=== PATIENT | male | born 1935 | race Caucasian/White ===

== ENCOUNTER 2017-12-15 16:00 | Inpatient (IN) | payer MEDICARE, BC ==
--- NOTE | 2017-12-15 16:07 | ED Physician Chart ---
ED Chief Complaint/HPI - Patient Information Date Seen:: 12/15/17 Time Seen:: 16:00 Chief Complaint:: Agitation History of Present Illness:: onset x 3 days of agitation and aggressive behavior; no report of SIs, trauma, H /As, neck pain, C/P, SOB, Abd.m Pain, A/N/V/D/C, fever, chills, or urinary s/s Historian:: Patient, EMS Review:: Nurse's Note Reviewed, Old Chart Reviewed, EMS run form Reviewed ED Review of Systems - Review of Systems General/Constitutional: No fever, No chills, No weight loss, No weakness, No diaphoresis, No edema, No loss of appetite Skin: No skin lesions, No rash, No bruising Head: No headache, No light-headedness Eyes: No loss of vision, No pain, No diplopia ENT: No earache, No nasal drainage, No sore throat, No tinnitus Neck: No neck pain, No swelling, No thyromegaly, No stiffness, No mass noted Cardio Vascular: No chest pain, No palpitations, No PND, No orthopnea, No edema Pulmonary: No SOB, No cough, No sputum, No wheezing GI: No nausea, No vomiting, No diarrhea, No pain, No melena, No hematochezia, No constipation, No hematemesis G/U: No dysuria, No frequency, No hematuria, No nacturia Musculoskeletal: No bone or joint pain, No back pain, No muscle pain Endocrine: No polyuria, No polydipsia Psychiatric: Prior psych history, Depression, Anxiety, No suicidal ideation, No homicidal ideation, Auditory hallucination, No visual hallucination Hematopoietic: No bruising, No lymphadenopathy Allergic/Immuno: No urticaria, No angioedema Neurological: No syncope, No focal symptoms, No weakness, No paresthesia, No headache, No seizure, No dizziness, Confusion, No vertigo ED Past Medical History - Past Medical History Obtainable: Yes Past Medical History: HTN, CAD, CVA/TIA, Dyslipidemia, PUD/GERD, Arthritis, Dementia Family History: Diabetes Melitus, HTN Social History: Non Smoker, No Alcohol, No Drug Use, Single, Care Facility Surgical History: None Psychiatricy History: Depression, Schizophrenia, Bipolar, Dementia Medication: Reviewed Family Medical History - Family Member Mother History Unknown: Yes ED Physical Exam - Physical Examination General/Constitutional: Awake, Well-developed, well-nourished, Alert, No distress, GCS 15, Non-toxic appearing, Ambulatory Head: Atraumatic Eyes: Lids, conjuctiva normal, PERRL, EOMI Skin: Nl inspection, No rash, No skin lesions, No ecchymosis, Well hydrated, No lymphadenopathy ENMT: External ears, nose nl, TM canals nl, Nasal exam nl, Lips, teeth, gums nl , Oropharynx nl, Tonsils nl Neck: Nontender, Full ROM w/o pain, No JVD, No nuchal rigidity, No bruit, No mass, No stridor Respiratory: Nl effort/Exclusion, Clear to Auscultation, No Wheeze/Rhonchi/Rales Cardio Vascular: RRR, No murmur, gallop, rubs, NL S1 S2, Carotid/Femoral/Distal pulses equal bilaterally GI: No tenderness/rebounding/guarding, No organomegaly, No hernia, Normal BS's, Nondistended, No mass/bruits, No McBurney tenderness : No CVA tenderness Extremities: No tenderness or effusion, Full ROM, normal strength in all extremities, No edema, Normal digits & nails Neuro/Psych: Alert/oriented, DTR's symmetric, Normal sensory exam, Normal motor strength, Judgement/insight normal, Mood normal, Normal gait, No focal deficits Other Neuro/Psych comments:: Disoriented and Confused; + Psychomotor Agitation; no SIs; Mood/Affect: Labile Misc: Normal back, No paraspinal tenderness ED Labs/Radiology/EKG Results - Lab Results Comments:: WBC: 15.0 - EKG Interpretations EKG Time:: 16:03 Rate & Rhythm: 65; NSR Comments:: non-specific st-t changes ED Septic Shock - . Is Septic Shock (SBP<90, OR Lactate>4 mmol\L) present?: No ED Reassessment (Disposition) - Reassessment Reassessment Condition:: Improved - Diagnosis Diagnosis:: Dx: Leukocytosis; Psychosis; Agitation; Bipolar Disorder; Dementia; Manic- Depression - Aftercare/Follow up Instructions Aftercare/Follow-Up Instructions:: Counseled pt regarding lab results/diagnosis & need follow up, Counseled pt & family regarding lab results/diagnosis & need follow up - Patient Disposition Discharge/Transfer:: Acute Care w/in this hosp Accepting Physician:: Dr. Quintero Time Called:: 0238 Time Responded:: 17:30 Admitted to:: [facility] Spoke to:: Dr. Quintero Admitting Medical Physician:: Dr. Quintero Admitting Psych Physician:: Dr. Ferrara Condition at Disposition:: Stable, Improved ED Discharge Plan - Patient Disposition Admit/Discharge/Transfer: Other Care w/in this hosp Condition at Disposition: Stable
[2017-12-15 16:45] LABS: ACETAMINOPHEN < 10.0 ug/mL (10.0-30.0); ALBUMIN 3.5 gm/dL (4.2-5.5); ALKALINE PHOSPHATASE 44 U/L (34-104); ANION GAP 11.8 (7.0-16.0); BILIRUBIN,TOTAL 0.5 mg/dL (0.3-1.0); BUN - UREA NITROGEN 15 mg/dL (7-25); CALCIUM SERUM 9.5 mg/dL (8.6-10.3); CARBON DIOXIDE 25.8 mEq/L (21.0-31.0); CHLORIDE 105 mEq/L (98-107); CHOLESTEROL 196 mg/dL (<200); CREATININE - SERUM 1.2 mg/dL (0.7-1.3); GLUCOSE 100 mg/dL (70-105); HDL -HIGH DENSITY LIPOPROTEIN 45 mg/dL (23-92); POTASSIUM SERUM 3.6 mEq/L (3.5-5.1); SGOT 10 U/L (13-39); SGPT/ALT 5 U/L (7-52); SODIUM SERUM 139 mEq/L (136-145); TOTAL PROTEIN,SERUM 6.9 gm/dL (6.0-8.3); TRIGLYCERIDES 201 mg/dL (<150)
[2017-12-15 16:49] LABS: % BASOPHILS 0.3 % (0.0-2.0); % EOSINOPHILS 2.8 % (0.0-5.0); % LYMPHOCYTES 12.6 % (20.0-50.0); % MONOCYTES 6.9 % (2.0-10.0); % NEUTROPHILS 77.4 % (40.0-80.0); EOSINOPHILE ABSOLUTE 0.4 Th/cmm (0.1-0.4); HEMATOCRIT 37.1 % (41.0-60); HEMOGLOBIN 12.8 gm/dL (12-16); LYMPHOCYTE ABSOLUTE 1.9 Th/cmm (1.5-3.0); MEAN CELL VOLUME 83.7 fl (80-99); MEAN CORPUSCULAR HEMOGLOBIN 28.8 pg (27.0-31.0); MEAN CORPUSCULAR HGB CONC 34.5 pg (28.0-36.0); MEAN PLATELET VOLUME 8.3 fl; MONOCYTE ABSOLUTE 1.1 Th/cmm (0.3-1.0); NEUTROPHILE ABSOLUTE 11.9 Th/cmm (1.8-8.0); PLATELET COUNT 335 Th/cmm (150-400); RED BLOOD COUNT 4.44 Mil/cmm (3.80-5.80); RED CELL DISTRIBUTION WIDTH 14.2 % (11.5-20.0); SALICYLATES (ASPIRIN) < 25.0 mg/L (30.0-100.0)
[2017-12-15 16:52] LABS: WHITE BLOOD COUNT 15.3 Th/cmm (4.8-10.8)
[2017-12-15 17:18] LABS: A1C % 5.3 % (4.0-6.0)
[2017-12-15 18:41] VITALS: BP 147/59
[2017-12-15 20:16] LABS: URINE MICROSCOPIC INDICATED? YES; URINE SOURCE CLEAN C
[2017-12-15 20:18] LABS: URINE BILIRUBIN NEGATIVE (NEGATIVE); URINE BLOOD NEGATIVE (NEGATIVE); URINE GLUCOSE (UA) NEGATIVE (NEGATIVE); URINE KETONE NEGATIVE (NEGATIVE); URINE LEUKOCYTE ESTERASE NEGATIVE (NEGATIVE); URINE NITRATE NEGATIVE (NEGATIVE); URINE PROTEIN TRACE mg/dL (NEGATIVE); URINE UROBILINOGEN 0.2 E.U./dL (0.2 - 1.0)
[2017-12-15 20:21] LABS: URINE CLARITY CLEAR (CLEAR); URINE COLOR YELLOW; URINE RBC NONE SEEN /hpf (0-5); URINE WBC NONE SEEN /hpf (0-5)
[2017-12-15 20:22] LABS: URINE BACTERIA NONE SEEN /hpf (NONE SEEN); URINE EPITHELIAL CELLS NONE SEEN /lpf (FEW)
[2017-12-15 21:00] LABS: AMPHETAMINE URINE NEGATIVE (NEGATIVE); BARBITURATES URINE NEGATIVE (NEGATIVE); BENZODIAZEPINES QUAL URINE POSITIVE (NEGATIVE); CANNABINOID THC NEGATIVE (NEGATIVE); COCAINE METABOLITE QUAL URINE NEGATIVE (NEGATIVE); METHADONE URINE NEGATIVE (NEGATIVE); METHAMPHETAMINES QUAL URINE NEGATIVE (NEGATIVE); OPIATES (MORPHINE) QUAL. URINE NEGATIVE (NEGATIVE); PHENCYCLIDINE (PCP) URINE NEGATIVE (NEGATIVE); TRICYCLICS (TCA) QUAL. URINE NEGATIVE (NEGATIVE)
[2017-12-15] MEDS ORDERED: Non-Formulary Item 1 EA (Melatonin [Melatonin] 3 MG) PO SCH (21:00)
--- NOTE | 2017-12-16 01:27 | Psychosocial Evaluation ---
DATE OF SERVICE: 12/15/2017 IDENTIFYING DATA: The patient is an 82-year-old male, resident of [facility]. Information obtained by directly interviewing the patient as well as reviewing the admission papers and they are reliable. JUSTIFICATION OF HOSPITALIZATION: The patient is admitted here on a voluntary basis in view of his agitation. CHIEF COMPLAINT: "I don't know." HISTORY OF PRESENT ILLNESS: This is the first psychiatric hospitalization to [facility] for this patient who is reported to have been screaming, yelling and getting easily agitated, cursing the staff and throwing things and even including the feces on the topete. The patient has been acting very bizarre. The patient's coping skills are noted to be poor. Review of the chart indicated that the patient has been on Depakote, Namenda and Aricept. The patient's physical examination was requested by Dr. Quintero. SUBSTANCE ABUSE HISTORY: None. PHYSICAL OR SEXUAL ABUSE HISTORY: None. LEGAL PROBLEMS: None at this time. STRENGTH AND ASSETS: The patient is motivated. MENTAL STATUS EXAMINATION: The patient is an 82-year-old, looking his stated age, superficially cooperative. Eye contact is poor. Mood is irritable. Affect is constricted. Insight and judgment at this time are noted to be still impaired. Impulse control seems to be poor. Coping skills are also noted to be poor. The patient has been having difficult time to cope with the stress. The patient has been having poor coping skills. The patient is alert and awake. The patient has short-term as well as long-term memory deficits. The patient's attention span and concentration are noted to be poor at this time. The patient is impulsive and has been acting very bizarre and also displaying aggressive behavior such as throwing the feces on to the topete. DIAGNOSTIC IMPRESSION: Psychotic disorder, not otherwise specified. 1B is dementia and behavioral change secondary to it. IMMEDIATE TREATMENT PLAN: The patient is going to be observed on the inpatient unit. Provided with supportive psychotherapy. The patient is going to be closely monitored. Once stabilized, the patient is going to be discharged to [facility] to be followed up on an outpatient basis. JOB# [id number]
[2017-12-16] MEDS ORDERED: Non-Formulary Item 1 EA (Donepezil Hcl [Aricept] 10 MG) PO SCH (09:00)
[2017-12-16] MEDS: Multivitamin w/ Minerals Tab PO SCH (09:37)
[2017-12-16] MEDS: Sulfamethoxazole/TMP 800/160mg Tab PO SCH ×2 (09:38→16:24)
[2017-12-16] MEDS: Pantoprazole 40 mg EC Tab PO SCH (09:38)
--- NOTE | 2017-12-16 16:11 | Progress Notes ---
DATE: 12/16/2017 PSYCHIATRIC PROGRESS NOTE TIME PATIENT SEEN: Staff was spoken to. The patient is interviewed. Mood is noted to be irritable. Affect is constricted. Insight and judgment are noted to be very impaired. Impulse control is noted to be poor. The patient is screaming and yelling. The patient has been calling loud for his . The patient has no insight into his illness. Coping skills are noted to be very poor. The patient is very paranoid and demented at this time. ASSESSMENT: The patient is still impulsive and not able to contract for safety. PLAN: To add a low dose of the Seroquel at night time for his paranoia and follow the patient. [facility]# [id number]
--- NOTE | 2017-12-16 18:26 | History & Physical ---
ADMIT DATE: 12/15/2017 INTERNAL MEDICINE CONSULTATION HISTORY OF PRESENT ILLNESS: The patient is an 82-year-old male. PAST MEDICAL HISTORY: Significant for hypertension, peptic ulcer disease, gastritis, arthritis, history of carcinoid bladder. The patient has a permanent pacemaker and coronary artery disease. SOCIAL HISTORY: No documented smoking or alcohol abuse. FAMILY HISTORY: Not available. REVIEW OF SYSTEMS: The patient had no obvious chest pain, no palpitations, dizziness. No abdominal pain, no urinary symptoms. PHYSICAL EXAMINATION: GENERAL: Male in no obvious respiratory distress. VITAL SIGNS: Include a blood pressure 140/80, heart rate 80, and respiration rate of 18. SKIN: Show no obvious cellulitis. HEENT: Normal conjunctivae. NECK: Supple. LUNGS: Shows bilateral good air entry. No adventitious sounds. HEART: First and second sound present. ABDOMEN: Soft, bowel sounds good. EXTREMITIES: Show arthritis. NEUROLOGIC: The patient has no focal motor deficit. LABORATORY DATA: Include white count 15.3, hematocrit 37.1, and platelet count 335. Sodium 139, potassium 3.6, chloride 105, bicarbonate 25.8, BUN 15, creatinine of 1.2, glucose of 100. ADMITTING MEDICAL DIAGNOSES: Include hypertension, coronary artery disease, permanent pacemaker, peptic ulcer disease, gastritis, arthritis, osteoporosis, history of carcinoid bladder. TREATMENT PLAN: The patient currently on Namenda, Protonix, Seroquel, Ambien. The patient is on lisinopril, Klonopin, Norvasc, Tylenol. The patient also received Bactrim for possible UTI. JOB# [id number]
[2017-12-17] MEDS: Sulfamethoxazole/TMP 800/160mg Tab PO SCH ×2 (09:31→17:44)
[2017-12-17] MEDS: Pantoprazole 40 mg EC Tab PO SCH (09:32)
[2017-12-17] MEDS: Multivitamin w/ Minerals Tab PO SCH (09:32)
--- NOTE | 2017-12-17 14:17 | Consultation ---
DATE OF CONSULTATION: 12/16/2017 TYPE OF CONSULTATION: Psychology. REQUESTING PHYSICIAN: Carlos Figueroa M.D. HISTORY OF PRESENT ILLNESS: The following is by a review of the medical record as well as by patient self report. According to record review, the patient is an 82-year-old male who is a resident of [facility]. The patient is known to this senior technical writer from his intermediate facility. The patient is being admitted due to increased agitation. Upon interview, the patient is seen in the activity room up in a Carla chair. The patient is yelling and screaming. The patient is yelling for his and to be put back to bed. The patient is consistently yelling help, somebody help me. The patient is not responding to de-escalation and the patient struggled with responding to the clinical interview questions. The patient is profoundly confused and disoriented to person, place, date, and time. The patient has been agitated according to the staff at the patient's facility. The patient has been acting bizarre. The staff had spoken with the psychiatrist and reported that he had been throwing items in his room including throwing feces and not responding to redirection and had become uncontrollable. The patient did not answer questions about suicidal ideation, plan, or intention or any wish to . The patient did not answer questions about hopelessness or helplessness. The patient continued to yell intermittently throughout the clinical assessment. PAST MEDICAL HISTORY: Please see history and physical. PAST PSYCHIATRIC HISTORY: The patient has a history of dementia according to the psychiatrist at his intermediate facility. MEDICATIONS: Please see medication reconciliation. ALLERGIES: No known drug allergies. SUBSTANCE ABUSE HISTORY: None. PSYCHOSOCIAL HISTORY: The patient is a resident at [facility]. The patient is . The patient is Buddhism. The patient did not answer questions about occupational or educational history or family relationships or family history. MENTAL STATUS EXAMINATION: The patient appears to be his stated age. The patient's attitude is uncooperative. Speech is loud and the patient is yelling and screaming and demanding to return to his bed. The patient continued to yell help intermittently during the Clinical interview. Eye contact is poor. Mood is irritable, angry. Affect is constricted. Thought process shows to be confused. The patient did not answer questions about auditory or visual hallucinations; however, the patient's verbalizations indicate possibility of some paranoid ideation and/or suspiciousness. The patient's behavior has been uncontrollable and unredirectable on the unit. Impulse control is inadequate. Concentration is poor. The patient was unable to sustain focus and attention and follow through with any verbal commands or answer clinical questions relevantly. The patient did not participate in the memory evaluation. 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 The patient has a history of cognitive deficits. The patient did not participate in interpretation of proverbs. The patient continued to display aggressive behavior. Insight is impaired. Judgment is impaired. DIAGNOSTIC IMPRESSION: AXIS I: 1. Psychotic disorder, not otherwise specified. 2. Dementia with behavioral disturbance. AXIS II: Deferred. AXIS III: Please see history and physical. TREATMENT AND PLAN: The patient has been seen by Dr. Figueroa for psychiatric evaluation and for the management of the patient's psychotropic medications. We will provide supportive psychotherapy. We will provide de-escalation as well as motivational enhancement for the patient to manage his stress and to respond to behavioral management i.e., cognitive and behavioral redirection, de-escalation, and to be able to verbally interact with staff regarding his concerns versus acting out. We will provide reality orientation, reality differentiation, and reality integration. We will provide coping strategies for phase of life issues as well as chronic neurodegenerative disease. Thank you, Dr. Figueroa for this consult and the opportunity to participate with you in your patient's care. [facility]# [id number] [facility]
--- NOTE | 2017-12-17 18:05 | Progress Notes ---
DATE: 12/17/2017 PSYCHIATRIC PROGRESS NOTE SUBJECTIVE: Staff was spoken to. The patient is interviewed. The patient is still impulsive and is refusing to comply with the medication. The patient has been given a dose of Ativan to calm him down. No side effects to the medications are noted at this time. ASSESSMENT: The patient is still impulsive and psychotic. PLAN: To continue the patient with the current medications. I encouraged the patient to comply with the medication rather than to act out. JOB# [id number]
[2017-12-18] MEDS: Sulfamethoxazole/TMP 800/160mg Tab PO SCH ×2 (09:46→16:38)
[2017-12-18] MEDS: Pantoprazole 40 mg EC Tab PO SCH (09:46)
[2017-12-18] MEDS: Multivitamin w/ Minerals Tab PO SCH (09:46)
--- NOTE | 2017-12-19 02:59 | Progress Notes ---
DATE: 12/18/2017 PSYCHIATRIC PROGRESS NOTE SUBJECTIVE: Staff was spoken to. The patient is interviewed. Mood is noted to be irritable. Affect is constricted. Insight and judgment to be very much impaired. Impulse control is noted to be poor. The patient is screaming and yelling. The patient has to be redirected. The patient is currently on low dose of the ____ acid and Seroquel at night time and has been able to tolerate the medications. No side effects to the medications are noted. ASSESSMENT: The patient is still impulsive. PLAN: To continue the patient with the current medications and followup. JOB# [id number]
[2017-12-19] MEDS: Sulfamethoxazole/TMP 800/160mg Tab PO SCH ×2 (08:34→16:22)
[2017-12-19] MEDS: Multivitamin w/ Minerals Tab PO SCH (08:35)
[2017-12-19] MEDS: Pantoprazole 40 mg EC Tab PO SCH (08:37)
--- NOTE | 2017-12-20 03:25 | Progress Notes ---
DATE: 12/19/2017 PSYCHIATRIC PROGRESS NOTE SUBJECTIVE: Staff was spoken to. The patient is interviewed. Mood is noted to be irritable. Affect is constricted. Insight and judgment at this time are noted to be still impaired. Impulse control is noted to be poor. The patient is reluctant to comply with the treatment. Constantly arguing. The patient is stating that he needs to be there with his and the patient has been placed on the Seroquel 12.5 mg to ____ his paranoia and agitation. ASSESSMENT: The patient is still psychotic and impulsive. PLAN: To continue patient with the current medications. I encouraged the patient to verbalize the concerns rather than to act out. JOB# [id number]
[2017-12-20] MEDS: Pantoprazole 40 mg EC Tab PO SCH (09:17)
[2017-12-20] MEDS: Sulfamethoxazole/TMP 800/160mg Tab PO SCH ×2 (09:17→17:09)
[2017-12-20] MEDS: Multivitamin w/ Minerals Tab PO SCH (09:17)
--- NOTE | 2017-12-21 03:10 | Progress Notes ---
DATE: 12/20/2017 SUBJECTIVE: Staff was spoken to. The patient is interviewed. Mood is noted to be irritable. Affect is constricted. The patient's coping skills are noted to be very poor. The patient is getting easily frustrated. The patient has no insight into his illness. The patient needs to be redirected and the patient has been on the Seroquel, which is going to be gradually increased to 25 mg daily and patient is going to be followed. The patient is not ready to be discharged to a lower level of care in view of his psychosis. JOB# [id number]
[2017-12-21] MEDS: Multivitamin w/ Minerals Tab PO SCH (08:50)
[2017-12-21] MEDS: Sulfamethoxazole/TMP 800/160mg Tab PO SCH ×2 (08:51→16:06)
[2017-12-21] MEDS: Pantoprazole 40 mg EC Tab PO SCH (08:51)
--- NOTE | 2017-12-22 01:04 | Progress Notes ---
DATE: 12/21/2017 SUBJECTIVE: Staff was spoken to. The patient is interviewed. Mood is noted to be irritable. Affect is constricted. The patient is screaming and yelling and calling loudly for his . The patient has no insight. The patient has been placed on Seroquel that was increased yesterday. Coping skills are noted to be extremely poor. ASSESSMENT: The patient is still psychotic. PLAN: To continue the patient with the supportive therapy and followup. JOB# [id number]
[2017-12-22] MEDS: Pantoprazole 40 mg EC Tab PO SCH (10:34)
[2017-12-22] MEDS: Multivitamin w/ Minerals Tab PO SCH (10:34)
[2017-12-22] MEDS: Sulfamethoxazole/TMP 800/160mg Tab PO SCH ×2 (10:36→17:56)
--- NOTE | 2017-12-23 01:12 | Progress Notes ---
DATE: 12/22/2017 SUBJECTIVE: Staff was spoken to. The patient is interviewed. Mood is irritable. Affect is constricted. Insight and judgment is noted to be still impaired. Impulse control seems to be limited. Coping skills are noted to be limited. The patient is screaming and yelling at the top of his lungs calling for his . The patient has been currently on Klonopin 0.5 mg twice a day, divalproex 125 mg twice a day and he is also on Seroquel 25 mg at bedtime. The patient has been able to tolerate the medications. The patient's short and long-term memory are noted to be impaired at this time. ASSESSMENT: The patient is still impulsive, psychotic and paranoid. PLAN: To continue the patient on the current medications and followup. JOB# [id number]
[2017-12-23] MEDS: Sulfamethoxazole/TMP 800/160mg Tab PO SCH ×2 (08:05→16:36)
[2017-12-23] MEDS: Multivitamin w/ Minerals Tab PO SCH (08:06)
[2017-12-23] MEDS: Pantoprazole 40 mg EC Tab PO SCH (08:09)
--- NOTE | 2017-12-24 03:51 | Progress Notes ---
DATE: 12/23/2017 SUBJECTIVE: Staff was spoken to. The patient is interviewed. Mood is noted to be irritable. Affect is constricted. Insight and judgment are noted to be still impaired. Impulse control seems to be poor. The patient has been screaming and yelling at the top of his lungs and has been getting easily frustrated and has been asking for his all the time. The patient has no insight into his illness. Coping skills are noted to be very poor. The patient has also been getting easily paranoid. The patient is currently maintained on 25 mg of the Seroquel at night time and the Depakote is going to be increased to 250 mg twice a day from 125 mg. ASSESSMENT: The patient is still impulsive. PLAN: To continue the patient with supportive therapy and follow. [facility]# [id number]
[2017-12-24] MEDS: Pantoprazole 40 mg EC Tab PO SCH (09:28)
[2017-12-24] MEDS: Multivitamin w/ Minerals Tab PO SCH (09:29)
[2017-12-24] MEDS: NYSTATIN 100000 UNITS/GM POWD TP SCH (23:49)
--- NOTE | 2017-12-25 04:09 | Progress Notes ---
DATE: 12/24/2017 SUBJECTIVE: Staff was spoken to. The patient is interviewed. Mood is noted to be irritable. Affect is constricted. Insight and judgment are very much impaired. Impulse control is noted to be poor. Coping skills are noted be very poor. The patient is screaming at the top of his lungs and does not keep quiet. The patient has no insight into his illness. Coping skills are noted to be very poor. The patient is still demented. ASSESSMENT: The patient is psychotic and impulsive. PLAN: Continue the patient with the current medications and follow. JOB# [id number]
[2017-12-25] MEDS: Multivitamin w/ Minerals Tab PO SCH (11:27)
[2017-12-25] MEDS: Pantoprazole 40 mg EC Tab PO SCH (11:27)
[2017-12-25] MEDS: NYSTATIN 100000 UNITS/GM POWD TP SCH ×2 (11:32→16:23)
--- NOTE | 2017-12-25 22:21 | Progress Notes ---
DATE: 12/25/2017 SUBJECTIVE: Staff was spoken to. The patient is interviewed. Mood is noted to be irritable. Affect is constricted. The patient is still screaming and yelling. Insight and judgment at this time are noted to be still impaired. Impulse control is little bit poor. Coping skills are noted to be very poor. The patient is currently on 250 mg twice a day of the Depakote and the patient still continues to be very paranoid and is not able to contract for safety. The patient has been asking for his and when he does not get his way, he has been constantly screaming and yelling. ASSESSMENT: The patient is still psychotic and impulsive. PLAN: To continue the patient with the current medications and increase the dose on the Seroquel to 25 mg twice a day and follow the patient with the supportive therapy. JOB# [id number]
[2017-12-26] MEDS: Multivitamin w/ Minerals Tab PO SCH (11:02)
[2017-12-26] MEDS: NYSTATIN 100000 UNITS/GM POWD TP SCH ×2 (11:03→17:58)
[2017-12-26] MEDS: Pantoprazole 40 mg EC Tab PO SCH (11:03)
--- NOTE | 2017-12-26 17:02 | Progress Notes ---
DATE: 12/26/2017 SUBJECTIVE: Staff was spoken, the patient to be interviewed. Mood is less irritable today and is noted to be improving. Impulse control seems to be a concern at this time. The patient has been on Klonopin 0.5 mg twice a day and also getting the Depakote 250 mg twice a day. The patient has been increased on his Seroquel, which is given 25 mg twice a day yesterday. The patient has been able to tolerate medication. Paranoia is noted, but patient is also noted to be having dementia and has been all the time. ASSESSMENT: The patient is still paranoid. PLAN: To continue the patient with the supportive therapy, encouraged the patient to verbalize the concerns rather than to act out. JOB# [id number]
[2017-12-27] MEDS: Pantoprazole 40 mg EC Tab PO SCH (09:55)
[2017-12-27] MEDS: Multivitamin w/ Minerals Tab PO SCH (09:55)
[2017-12-27] MEDS: NYSTATIN 100000 UNITS/GM POWD TP SCH ×2 (09:58→17:02)
--- NOTE | 2017-12-27 17:01 | Progress Notes ---
DATE: 12/27/2017 SUBJECTIVE: Staff was spoken to. The patient is interviewed. Mood is noted to be less irritable. Affect is appropriate. The patient's coping skills are noted to be improving. Screaming and yelling has been coming down. No side effects to the medications are noted. ASSESSMENT: The patient's impulsivity is getting under control. PLAN: To continue the patient with the supportive therapy, encouraged the patient to verbalize the concerns rather than to act out. JOB# [id number]
[2017-12-28] MEDS: Multivitamin w/ Minerals Tab PO SCH (09:18)
[2017-12-28] MEDS: Pantoprazole 40 mg EC Tab PO SCH (09:18)
[2017-12-28] MEDS: NYSTATIN 100000 UNITS/GM POWD TP SCH ×2 (09:21→17:12)
--- NOTE | 2017-12-29 01:30 | Progress Notes ---
DATE: 12/28/2017 SUBJECTIVE: Staff was spoken to, patient is interviewed. Mood is noted to be anxious. Affect is appropriate. Insight and judgment are improving. Impulse control seems to be fair. No screaming and yelling is reported. The patient has been having dementia and has been wanting to talk to his all the time, but patient has not been getting easily upset. No side effect to the medications are noted. ASSESSMENT: The patient is stabilizing. PLAN: To discharge the patient today for followup on outpatient basis. JOB# [id number]
[2017-12-29] MEDS: Multivitamin w/ Minerals Tab PO SCH (09:14)
[2017-12-29] MEDS: Pantoprazole 40 mg EC Tab PO SCH (09:14)
[2017-12-29] MEDS: NYSTATIN 100000 UNITS/GM POWD TP SCH ×2 (09:15→16:36)
--- NOTE | 2017-12-30 02:43 | Progress Notes ---
DATE: 12/29/2017 PSYCHIATRIC PROGRESS NOTE SUBJECTIVE: Staff was spoken to. The patient is interviewed. Mood is noted to be anxious. Affect is appropriate. The patient's insight and judgment are improving. Impulse control seems fair. No side effects to the medications are noted. The patient is screaming and yelling, has been coming down. The patient has been able to tolerate the Seroquel. The patient at this time is going to be continued on the valproic acid 250 mg twice a day and Seroquel 25 mg twice a day. When placement is available, the patient is going to be discharged for followup on outpatient basis. JOB# [id number]
[2017-12-30] MEDS: Multivitamin w/ Minerals Tab PO SCH (11:37)
[2017-12-30] MEDS: Pantoprazole 40 mg EC Tab PO SCH (11:37)
[2017-12-30] MEDS: NYSTATIN 100000 UNITS/GM POWD TP SCH ×2 (11:37→17:58)
--- NOTE | 2017-12-30 22:10 | Progress Notes ---
DATE: 12/30/2017 SUBJECTIVE: Staff was spoken to. The patient is interviewed. Mood is noted to be less irritable. Affect is appropriate. Not suicidal or homicidal. Insight and judgment are noted to be fair. Impulse control is also noted to be fair. The patient has been able to verbalize the concerns rather than to act out. No side effects to the medications are noted. ASSESSMENT: The patient is stabilizing. PLAN: To discharge the patient for followup on outpatient basis whenever the placement is available. JOB# [id number]
[2017-12-31] MEDS: Multivitamin w/ Minerals Tab PO SCH (09:51)
[2017-12-31] MEDS: NYSTATIN 100000 UNITS/GM POWD TP SCH (09:51)
[2017-12-31] MEDS: Pantoprazole 40 mg EC Tab PO SCH (09:52)
== END 2017-12-31 17:20 | DRG 884 ==
LOC: ER 16:00 → GERO2 17:38 → GERO 12-16 10:58
PROVIDERS: ADMIT Psychiatry & Neurology Psychiatry; ATTEND Psychiatry & Neurology Psychiatry
DX: F03.91 Unspecified dementia, unspecified severity, with behavioral disturbance (principal); F31.2 Bipolar disorder, current episode manic severe with psychotic features; F29 Unspecified psychosis not due to a substance or known physiological condition; I10 Essential (primary) hypertension; I25.10 Atherosclerotic heart disease of native coronary artery without angina pectoris; K27.9 Peptic ulcer, site unspecified, unspecified as acute or chronic, without hemorrhage or perforation; K29.70 Gastritis, unspecified, without bleeding; M19.90 Unspecified osteoarthritis, unspecified site; D72.829 Elevated white blood cell count, unspecified; R45.87 Impulsiveness; F41.9 Anxiety disorder, unspecified; M81.0 Age-related osteoporosis without current pathological fracture; E78.5 Hyperlipidemia, unspecified; K21.9 Gastro-esophageal reflux disease without esophagitis; Z86.73 Personal history of transient ischemic attack (TIA), and cerebral infarction without residual deficits; Z85.51 Personal history of malignant neoplasm of bladder; Z95.0 Presence of cardiac pacemaker; Z83.3 Family history of diabetes mellitus; Z82.49 Family history of ischemic heart disease and other diseases of the circulatory system
CPT/HCPCS: 36415-UA; 80053-TC; 80061-TC; 80307; 80320-TC; 80329-TC; 81001-TC; 83036-90; 83605; 84443-TC; 85025-TC; 86592-TC; 93005; G0410; J2060; Z7610